=== PATIENT | female | born 1980 | race Two or more races ===

== ENCOUNTER 2017-04-05 23:34 | Emergency (ER) | payer MEDICAID ==
[~2017-04-05] VITALS: Ht 162.6 cm; Wt 65.5 kg
[~2017-04-05 23:34] MED LIST: CEPH-443 PO; IBUP-1542 PO; PHEN95TA29 PO
[2017-04-05 23:38] VITALS: Ht 162.6 cm; Wt 65.5 kg
[2017-04-06 01:42] LABS: BASOPHILS % 0.3 % (0.0-2.0); EOSINOPHILS % 0.5 % (0.0-7.0); HEMATOCRIT 40.1 % (37.0-47.0); HEMOGLOBIN 13.5 g/dl (12.0-16.0); LYMPHOCYTES # 2.2 10^3/ul (0.8-2.9); LYMPHOCYTES % 35.4 % (15.0-51.0); MEAN CORPUSCULAR HEMOGLOBIN 31.1 pg (29.0-33.0); MEAN CORPUSCULAR HGB CONC 33.7 g/dl (32.0-37.0); MEAN CORPUSCULAR VOLUME 92.4 fl (82.0-101.0); MEAN PLATELET VOLUME 10.2 fl (7.4-10.4); MONOCYTE # 0.4 10^3/ul (0.3-0.9); MONOCYTES % 6.6 % (0.0-11.0); NEUTROPHIL # 3.5 10^3/ul (1.6-7.5); NEUTROPHILS % 56.9 % (39.0-77.0); PLATELET COUNT 286 10^3/UL (140-415); RED BLOOD COUNT 4.34 10^6/ul (4.20-5.40); RED CELL DISTRIBUTION WIDTH 11.7 % (11.5-14.5); WHITE BLOOD COUNT 6.1 10^3/ul (4.8-10.8)
[2017-04-06 01:43] LABS: ADD SCAN DIFF NO
[2017-04-06 01:54] LABS: CALCIUM 9.4 mg/dl (8.4-10.2); CREATININE 0.67 mg/dl (0.44-1.00); POTASSIUM 3.6 mmol/L (3.5-5.1)
--- NOTE | 2017-04-06 02:02 | RADRPT ---
PROCEDURE: CT scan facial bones CLINICAL INDICATION: Pain, facial swelling, sore throat. Status post dental work. TECHNIQUE: A CT of the facial bones was performed without intravenous contrast. Coronal and sagitt al reformats were generated. CTDIvol: 29.55 mGy. DLP: 191.79 mGy-cm. One or more of the following dose reduction techniques were used: - Automated exposure control. - Adjustment of the mA and/or kV according to patient size. - Use of iterative reconstruction technique. COMPARISON: None available FINDINGS: There is mild soft tissue swelling along the upper lip. No soft tissue gas or abscess is identified, although evaluation for abscess is limited without venous contrast. No periapical lucencies are se en along the maxillary and mandibular teeth. There is no facial fracture. The intraorbital structur es are normal. The paranasal sinuses and nasal cavity are clear. The visualized intracranial soft tissues are within normal limits. IMPRESSION: 1. Mild soft tissue swelling along the upper lip, nonspecific but possibly representing cellulitis. No soft tissue gas or abscess is identified, although evaluation for abscess is limited without ve nous contrast. 2. No periapical lucencies along the maxillary and mandibular teeth to suggest an odontogenic infec tion. Call report: A call report of the findings was made to Leeann COLEMAN at 01:55 a.m. on 04/06/2017 . RPTAT: HTAR .Sanju Talavera MD, Date Time Electronically viewed and signed by .Sanju Talavera MD, on 04/06/2017 02:02 .R/
[2017-04-06] MEDS ORDERED: KETOROLAC 30 MG INJ IV STA (02:36)
--- NOTE | 2017-04-06 02:57 | ERD ---
ER Documentation Chief Complaint Date/Time DATE: 04/06/17 Chief Complaint Mouth sore, Sore throat, Upper lip swelling HPI The patient is a 37-year-old female who presents to the Emergency Department with complaint of mouth pain, sore throat and mild upper lip swelling. The patient reports that on Sunday she developed pain to her throat, tongue, oropharynx and gums. Since, she has developed mild swelling to the upper lip. She was evaluated by her primary medical provider, who placed her on a course of Augmentin and Magic Mouthwash (PRN), which she has been using as directed. However, her symptoms have not resolved, and therefore she presents today for further evaluation. The patient denies any fevers, sweats, chills, nausea or vomiting. Denies difficulty opening or closing her mouth, difficulty tolerating her oral secretions or any change in phonation. Denies neck pain, neck stiffness or swelling. Denies new rashes. Denies any tongue swelling. She does note presence of vesicles to the posterior pharynx, to the tongue, inner mucosa and gums, which she believes to be the cause of her symptoms. Denies any similar lesions to her hands/feet. Denies any other complaints at this time or any contacts with similar symptoms. ROS All systems reviewed and are negative except as per history of present illness. Medications Home Meds Active Scripts Ibuprofen* (Ibuprofen*) 600 Mg Tablet, 600 MG PO Q6H, #30 TAB Prov:KESHIA BROOKS PA-C 04/26/16 Phenazopyridine Hcl* (AZO*) 95 Mg Tablet, 95 MG PO TID, #20 TAB Prov:KESHIA BROOKS PA-C 04/26/16 Cephalexin* (Keflex*) 500 Mg Capsule, 500 MG PO QID for 14 Days, CAP Prov:KESHIA BROOKS PA-C 04/26/16 Allergies Allergies: Coded Allergies: No Known Allergy (Unverified , 02/21/15) PMhx/Soc Medical and Surgical Hx: pt denies Medical Hx, pt denies Surgical Hx History of Surgery: No Anesthesia Reaction: No Hx Neurological Disorder: No Hx Respiratory Disorders: No Hx Cardiac Disorders: No Hx Psychiatric Problems: No Hx Miscellaneous Medical Probl: No Hx Alcohol Use: No Hx Substance Use: No Hx Tobacco Use: No Smoking Status: Unknown if ever smoked Physical Exam Vitals Vital Signs Date Time Temp Pulse Resp B/P Pulse Ox O2 Delivery O2 Flow Rate FiO2 04/06/17 03:23 99.6 100 20 128/78 99 Room Air 04/05/17 23:38 99.6 122 20 131/78 99 Physical Exam GENERAL: Well-developed, well-nourished, in no acute distress HEENT: Head is normocephalic, atraumatic. No scleral pallor or icterus. Pupils equal, round and reactive to light. Extraocular movements intact. Conjunctiva pink. Bilaterally tympanic membranes are clear with no evidence of erythema, effusion or dulling of the light reflex. Moist mucous membranes. Bunn/white papulovesicular lesions to the tongue, inner mucosa, posterior pharynx, consistent with herpangina. No trimsus. No stridor. No excessive drooling. No tripoding. Uvula is midline with no deviation. No peritonsillar abscess. Phonation is normal. No submandibular or sublingual swelling or tenderness. No elevation of the tongue. No pharyngeal erythema or exudates. NECK: Supple. No masses, no tenderness, no lymphadenopathy. Trachea midline. No nuchal rigidity. Full range of motion. No crepitus. No meningismus. RESPIRATORY: Lungs are clear to auscultation bilaterally. No rales, rhonchi or wheezing. Equal breath sounds. Normal expiratory effort. CARDIOVASCULAR: Tachycardic. Regular rhythm. S1 and S2 normal. GASTROINTESTINAL: Abdomen is soft, nontender, and nondistended. BACK: No midline tenderness. EXTREMITIES: No clubbing, cyanosis, or edema. Normal skin perfusion. Moving all extremities. Muscle tone is normal. No focal swelling or erythema. NEUROLOGIC: The patient is alert, awake, and oriented x 3. No focal neurologic deficits. INTEGUMENT: Skin is clean, dry and intact. No rashes, lesions or petechiae present. No lesions to the hands/feet. No desquamation. No skin sloughing. No petechiae or purpura. PSYCHIATRIC: Appropriate; Cooperative. Result Diagram: 04/06/17 0126 04/06/17 0126 Results 24 hrs Laboratory Tests Test 04/06/17 01:26 White Blood Count 6.110^3/ul Red Blood Count 4.3410^6/ul Hemoglobin 13.5g/dl Hematocrit 40.1% Mean Corpuscular Volume 92.4fl Mean Corpuscular Hemoglobin 31.1pg Mean Corpuscular Hemoglobin Concent 33.7g/dl Red Cell Distribution Width 11.7% Platelet Count 02227^3/UL Mean Platelet Volume 10.2fl Neutrophils % 56.9% Lymphocytes % 35.4% Monocytes % 6.6% Eosinophils % 0.5% Basophils % 0.3% Nucleated Red Blood Cells % 0.0/100WBC Neutrophils # 3.510^3/ul Lymphocytes # 2.210^3/ul Monocytes # 0.410^3/ul Eosinophils # 0.010^3/ul Basophils # 0.010^3/ul Nucleated Red Blood Cells # 0.010^3/ul Sodium Level 142mmol/L Potassium Level 3.6mmol/L Chloride Level 104mmol/L Carbon Dioxide Level 27mmol/L Anion Gap 15 Blood Urea Nitrogen 12mg/dl Creatinine 0.67mg/dl Glucose Level 105mg/dl Calcium Level 9.4mg/dl Current Medications Medications (Trade) Dose Ordered Sig/Arcelia Route PRN Reason Start Time Stop Time Status Last Admin Dose Admin Ketorolac Tromethamine (Toradol) 30 mg ONCE STAT IV 04/06/17 02:36 04/06/17 02:38 DC 04/06/17 02:45 Procedures/MDM The patient's case was reviewed and discussed with ED attending/supervising physician, Dr. Mcnulty, who evaluated the patient bedside. He agrees with management and plan for laboratory testing and advanced imaging as appropriate. He recommends that the patient be discharged home to continue with the previously prescribed medications. Does not recommend change of antibiotic or therapy at this time. DIAGNOSTIC TESTS AND INTERPRETATION: PROCEDURE: CT scan facial bones CLINICAL INDICATION: Pain, facial swelling, sore throat. Status post dental work. TECHNIQUE: A CT of the facial bones was performed without intravenous contrast. Coronal and sagittal reformats were generated. CTDIvol: 29.55 mGy. DLP: 191.79 mGy-cm. One or more of the following dose reduction techniques were used: - Automated exposure control. - Adjustment of the mA and/or kV according to patient size. - Use of iterative reconstruction technique. COMPARISON: None available FINDINGS: There is mild soft tissue swelling along the upper lip. No soft tissue gas or abscess is identified, although evaluation for abscess is limited without venous contrast. No periapical lucencies are seen along the maxillary and mandibular teeth. There is no facial fracture. The intraorbital structures are normal. The paranasal sinuses and nasal cavity are clear. The visualized intracranial soft tissues are within normal limits. IMPRESSION: 1. Mild soft tissue swelling along the upper lip, nonspecific but possibly representing cellulitis. No soft tissue gas or abscess is identified, although evaluation for abscess is limited without venous contrast. 2. No periapical lucencies along the maxillary and mandibular teeth to suggest an odontogenic infection. .Sanju Talavera MD, MD Date Time Electronically viewed and signed by .Sanju Talavera MD, MD on 04/06/2017 02:02 MEDICAL DECISION MAKING: This is a 37-year-old female presenting to the Emergency Department with new oral lesions and pain, with mild upper lip swelling. Otherwise, she has no dysphagia, no tongue swelling, no excessive drooling, no trismus, no stridor. No elevation of the tongue or fluctuance/ pain to the sublingual area. She had bunn/white papulovesicular lesions to the posterior pharynx, tongue, inner mucosa of the mouth noted on physical examination, consistent with herpangina. No associated hand or feet lesions. She exhibited no altered mental status, neurologic deficits, or meningeal signs. CT imaging performed, which revealed mild sore tissue swelling along the upper lip, possibly representing cellulitis. Otherwise, no soft tissue gas or abscess identified. After rest and administration of Toradol the patient reports no new complaints, and remains stable, with no signs of distress. Upon my review and interpretation of the patient's presentation and overall ER course I believe the patient's symptoms are most consistent with herpangina and cellulitis of the upper lip. At this time, the patient is well-appearing. She had no clinical evidence of pneumonia. Patient's neck was supple, with no altered mental status, no meningismus, and therefore I doubt meningitis. Oropharynx revealed no exudates, no petechiae, no associated anterior cervical lymphadenopathy, and therefore I doubt streptococcal pharyngitis. Further, no clinical findings to suggest epiglottitis, parapharyngeal abscess, Miquel's angina. At this time, the patient is in stable condition and therefore she can be discharged home with strict return precautions for signs of deteriorating or worsening condition. The patient is advised to continue the previously prescribed antibiotics as directed, and to follow up with her primary medical provider for reevaluation and further management within 1-2 days, or return to the ER sooner for any new or worsening symptoms. I shared my medical decision making and plan with the patient at length and in great detail, and they verbally understand and agree with the plan for further observation and care as an outpatient. At the time of discharge, all questions were answered. Departure Diagnosis: Primary Impression: Cellulitis of lip Additional Impressions: Oral pain Herpangina Condition: Stable Patient Instructions: Cellulitis, Gingivo - Stomatitis (Child), Hand Foot Mouth Disease (Child) Additional Instructions: Llame al doctor MAANA y angelika manas ARNALDO PARA DENTRO DE 1-2 SALTER.Dgale a la secretaria que nosotros le instruimos hacer esta arnaldo.Avise o llame si sherwood condicin se empeora antes de la arnaldo. Regresa aqui si peor o no mejor. DENIS DOSHI PA-C Apr 06, 2017 02:57
[2017-04-06 03:23] VITALS: BP 128/78; PULSE 100; RESP 20; TEMP 99.6
== END 2017-04-06 03:23 | disposition home or self-care (01) ==
LOC: FTE 23:34
DX: K13.0 Diseases of lips (principal); B08.5 Enteroviral vesicular pharyngitis
CPT/HCPCS: 70486; 80048; 85025; J1885; 96374